=== PATIENT | female | born 1970 | race Caucasian/White ===

== ENCOUNTER 2021-05-22 12:34 | Outpatient (CLI) | payer BC, OTHER ==
--- NOTE | 2021-05-22 16:19 | XRAY Report ---
PROCEDURE: Elbow 3 View LT INDICATIONS: STRAIN OF MUSCLES, FASCIA, AND TENDONS OF L FOREARM TECHNIQUE: 3 views of the elbow were acquired. COMPARISON: None FINDINGS: Bones: Adjacent to the lateral femoral condyle there is a 1 x 3 mm bone fragment which could be chron ic versus an avulsion fracture. Please correlate with point tenderness. Otherwise no fracture or disl ocation. No suspicious bony lesions. Soft tissues: No elbow joint effusion. No suspicious soft tissue calcifications. IMPRESSION: Small 1 x 3 mm bone fragment adjacent to the lateral condyle is nonspecific and could b e chronic, however if it correlates with the area of point tendernesscould be an avulsion fracture. Reviewed by: Sean Lu on 05/22/2021 4:17 PM PST Approved by: Sean Lu on 05/22/2021 4:17 PM PST Station ID: [id number]
== END 2021-05-22 23:59 | disposition home or self-care (01) ==
LOC: DI.N 12:34
PROVIDERS: ATTEND Nurse Practitioner
DX: S56.912A Strain of unspecified muscles, fascia and tendons at forearm level, left arm, initial encounter (principal); M24.022 Loose body in left elbow

== ENCOUNTER 2022-11-13 12:03 | Outpatient (CLI) | payer MEDICAID ==
--- NOTE | 2022-11-14 10:34 | Ultrasound Report ---
PROCEDURE: Head or Neck Soft Tissue INDICATIONS: FEELING LUMP IN THROAT TECHNIQUE: Real-time scanning was performed of the thyroid gland, with image documentation. COMPARISON: None FINDINGS: Right: Thyroid lobe is absent. Left: Thyroid lobe measures 4.0 x 1.5 x 1.6 cm, and is homogenous in echotexture. Isthmus: Not seen. IMPRESSION: 1. 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 2. Normal left thyroid lobe. 3. A cause for clinical symptoms is not identified on ultrasound. ACR TI-RADS definitions and recommendations: TI-RADS 1 (benign): 0 points. FNA not needed. TI-RADS 2 (not suspicious): 2 points. FNA not needed. TI-RADS 3 (mildly suspicious): 3 points. "FNA if 2.5 cm or larger, follow up if 1.5 cm or larger (at 1, 3, and 5 years). TI-RADS 4 (moderately suspicious): 4-6 points. "FNA if 1.5 cm or larger, follow up if 1 cm or larger (at 1, 2, 3, and 5 years). TI-RADS 5 (highly suspicious): 7 points or more. "FNA if 1 cm or larger, follow up if 0.5 cm or larger (every year for 5 years). Reviewed by: Cristine Saenz MD on 11/14/2022 10:33 AM PDT Approved by: Cristine Saenz MD on 11/14/2022 10:33 AM PDT Station ID: [id number]
== END 2022-11-13 12:04 | disposition home or self-care (01) ==
LOC: DI 12:03
PROVIDERS: ATTEND Physician Assistant
DX: F45.8 Other somatoform disorders (principal); E89.0 Postprocedural hypothyroidism